=== PATIENT | male | born 1985 | race Caucasian/White ===

== ENCOUNTER 2017-01-26 16:19 | Emergency (ER) | payer SELFPAY ==
[~2017-01-26] VITALS: Ht 177.8 cm; Wt 116.0 kg
[~2017-01-26 16:19] MED LIST: NAPR220T95 PO
[2017-01-26 16:52] VITALS: BP 155/103; PULSE 88; RESP 18; TEMP 99; O2SAT 95
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
[2017-01-26] MEDS ORDERED: EXTR500C PO (18:31)
[2017-01-26] MEDS ORDERED: PRED20 PO (18:31)
[2017-01-26] MEDS ORDERED: TRAM50TA PO (18:47)
== END 2017-01-26 19:00 | disposition home or self-care (01) ==
LOC: PHEFT 16:19
DX: S83.92XA Sprain of unspecified site of left knee, initial encounter (principal); M25.462 Effusion, left knee; F17.210 Nicotine dependence, cigarettes, uncomplicated; W17.89XA Other fall from one level to another, initial encounter; Y93.9 Activity, unspecified; Y92.9 Unspecified place or not applicable
CPT/HCPCS: 73564; 99283; L1830

== ENCOUNTER 2017-05-03 11:02 | Emergency (ER) | payer SELFPAY ==
[~2017-05-03] VITALS: Ht 177.8 cm; Wt 117.6 kg
[~2017-05-03 11:02] MED LIST changes: +EXTR500C PO; +PRED20 PO; +TRAM50TA PO
[2017-05-03 11:10] VITALS: PULSE 98; RESP 16; TEMP 98; O2SAT 100
--- NOTE | 2017-05-03 11:34 | PD ---
HPI Chief Complaint: Back/ Neck Pain or Injury Time Seen by Provider: 11:24 Travel History International Travel<30 days: No Contact w/Intl Traveler<30days: No Traveled to known affect area: No History of Present Illness HPI 31-year-old male presents the emergency department with 3 day history of increasing and spreading erythematous vesicular rash. Patient states it started on his left flank and now has disseminated across his trunk both front and back, as well as both forearms and lower extremities. Patient denies fever or chills but has had back pain and muscle aches. He denies upper respiratory symptoms, cough, shortness of breath, or abdominal discomfort or pain. He denies any specific exposure history. Last time he did yard work was a week and a half ago. Patient states he had a history of chickenpox as a child. He has no rash on his neck or head. He has no urinary symptoms. He is allergic to ibuprofen. Patient states he did take some Benadryl without much improvement. PFSH Past Medical History Hx Anticoagulant Therapy: No Diabetes: No Diminished Hearing: No Musculoskeletal: Yes (CHRONIC L LEG PAIN SP OLD INJURY) Integumentary: Yes (HX SKIN INFECTION) Immunizations Current: Yes Past Surgical History Tympanostomy Tube: Yes Other Surgery: Yes (pe tubes) Social History Alcohol Use: Yes (RARE) Tobacco Use: Yes (10/07 PPD) Substance Use: Yes (rare pot) Allergies-Medications (Allergen,Severity, Reaction): Coded Allergies: Benadryl (Verified Allergy, Severe, MOODINESS, 05/03/17) Ibuprofen (Verified Adverse Reaction, Mild, ABD PAIN, 05/03/17) Reported Meds & Prescriptions Reported Meds & Active Scripts Active Acyclovir 200 Mg Cap 800 Mg PO 5 TIMES A DAY 7 Days Review of Systems Except as stated in HPI: all other systems reviewed are Neg General / Constitutional: No: Fever, Chills Eyes: No: Visual changes HENT: No: Headaches Cardiovascular: No: Chest Pain or Discomfort Respiratory: No: Shortness of Breath Gastrointestinal: No: Abdominal Pain Genitourinary: No: Dysuria Musculoskeletal: Positive: Myalgias, No: Pain Skin: Positive Rash, Positive Itching, No Hives Neurologic: No: Weakness Psychiatric: No: Depression Endocrine: No: Polydipsia Hematologic/Lymphatic: No: Easy Bruising Physical Exam Narrative GENERAL: Patient appears in no acute distress. SKIN: Warm and dry. Patient has diffuse raised vesicular rash with various stages of healing with some areas of excoriation. It appears consistent with herpes zoster. There is no sign of cellulitis, abscess, or lesions suggestive of scabies. HEAD: Atraumatic. Normocephalic. EYES: Pupils equal and round. No scleral icterus. No injection or drainage. ENT: No nasal bleeding or discharge. Mucous membranes pink and moist. Pharynx is clear. Airway is patent. NECK: Trachea midline. Supple and nontender without significant lymphadenopathy. Negative Lhermitte sign. CARDIOVASCULAR: Regular rate and rhythm. RESPIRATORY: No accessory muscle use. Clear to auscultation. Breath sounds equal bilaterally. GASTROINTESTINAL: Abdomen soft, non-tender, nondistended. Hepatic and splenic margins not palpable. MUSCULOSKELETAL: Extremities without clubbing, cyanosis, or edema. No obvious deformities. NEUROLOGICAL: Awake and alert. No obvious cranial nerve deficits. Motor grossly within normal limits. Five out of 5 muscle strength in the arms and legs. Normal speech. PSYCHIATRIC: Appropriate mood and affect; insight and judgment normal. Data Data Last Documented VS Vital Signs Date Time Temp Pulse Resp B/P Pulse Ox O2 Delivery O2 Flow Rate FiO2 05/03/17 11:10 98.0 98 16 100 MDM Medical Decision Making Medical Screen Exam Complete: Yes Emergency Medical Condition: Yes Differential Diagnosis Allergic dermatitis. Viral syndrome. Shingles. Chickenpox. Narrative Course Patient is medically stable at time of exam. Patient is discussed and examined with Dr. Anglin. It Is felt the patient probably has active chickenpox, despite history of possible chickenpox as a child. Patient will be treated with acyclovir 200 mg capsules, he is to take for capsules 5 times a day for the next week. Patient is to take Tylenol and/or ibuprofen as needed. Patient use topical Caladryl to the lesions until healed. Patient follow with primary care physician or return to emergency department if symptoms worsen. Diagnosis Primary Impression: Chickenpox Referrals: [facility] Patient Instructions: Chickenpox (ED), Chickenpox Vaccine (ED), General Instructions Additional Instructions: It Is felt the patient probably has active chickenpox, despite history of possible chickenpox as a child. Patient will be treated with acyclovir 200 mg capsules, he is to take for capsules 5 times a day for the next week. Patient is to take Tylenol and/or ibuprofen as needed. Patient use topical Caladryl to the lesions until healed. Patient follow with primary care physician or return to emergency department if symptoms worsen. Med/Other Pt SpecificInfo: Prescription(s) given Scripts Acyclovir 200 Mg [id number] Mg PO 5 TIMES A DAY 7 Days Ref 0 Prov:Brent Anglin MD 05/03/17 Disposition: 01 DISCHARGE HOME Condition: Stable Luis M Vizcarra May 03, 2017 11:34
[2017-05-03] MEDS ORDERED: ACYC200C66 PO (11:35)
== END 2017-05-03 11:48 | disposition home or self-care (01) ==
LOC: PHED 11:02 → PHEFT 11:48
DX: B01.9 Varicella without complication (principal); F17.200 Nicotine dependence, unspecified, uncomplicated; Z87.39 Personal history of other diseases of the musculoskeletal system and connective tissue; Z87.2 Personal history of diseases of the skin and subcutaneous tissue
CPT/HCPCS: 99283

== ENCOUNTER 2017-05-11 14:06 | Emergency (ER) | payer SELFPAY ==
[~2017-05-11] VITALS: Ht 177.8 cm; Wt 115.8 kg
[~2017-05-11 14:06] MED LIST changes: +ACYC200C66 PO; -EXTR500C PO; -NAPR220T95 PO; -PRED20 PO; -TRAM50TA PO
[2017-05-11 14:10] VITALS: BP 142/93; PULSE 89; RESP 16; TEMP 99.1; O2SAT 97
[2017-05-11] MEDS ORDERED: methylPREDNISolone SOD SUCC 125 MG/2 ML VIAL IV PUSH ONE (16:15)
[2017-05-11] MEDS ORDERED: traMADol HCL 50 MG TAB PO ONE (16:15)
[2017-05-11 16:37] LABS: CHLORIDE 106 MEQ/L (98-107); POTASSIUM 4.3 MEQ/L (3.5-5.1); SODIUM (NA) 137 MEQ/L (136-145)
[2017-05-11 16:41] LABS: ANION GAP 6 MEQ/L (5-15); BICARBONATE 24.8 MEQ/L (21.0-32.0); BLOOD UREA NITROGEN 16 MG/DL (7-18)
[2017-05-11 16:44] LABS: ALT (GPT) 63 U/L (12-78); AST (GOT) 39 U/L (15-37); GLOMERULAR FILTRATION RATE 108 ML/MIN (>89)
[2017-05-11 16:45] LABS: TOTAL BILIRUBIN ADULT 0.3 MG/DL (0.2-1.0)
[2017-05-11 16:47] LABS: ALKALINE PHOSPHATASE 78 U/L (45-117); AUTOMATED NEUTROPHIL # 4.7 TH/MM3 (1.8-7.7); BASOPHIL % 0.4 % (0.0-2.0); EOSINOPHIL # 0.1 TH/MM3 (0-0.4); EOSINOPHIL % 1.4 % (0.0-4.0); HEMATOCRIT 48.3 % (39.0-51.0); HEMO FLAGS DIFF FINAL; LYMPHOCYTE # 2.2 TH/MM3 (1.0-4.8); MEAN CELL VOLUME 88.2 FL (80.0-100.0); MEAN CORPUSCULAR HEMOGLOBIN 30.8 PG (27.0-34.0); MEAN CORPUSCULAR HGB CONC 34.9 % (32.0-36.0); MONO % 6.1 % (0.0-8.0); NEUT % 62.1 % (16.0-70.0); PLATELET COUNT 270 TH/MM3 (150-450); RED BLOOD COUNT 5.48 MIL/MM3 (4.50-5.90); RED CELL DISTRIBUTION WIDTH 12.4 % (11.6-17.2); WHITE BLOOD COUNT 7.5 TH/MM3 (4.0-11.0)
[2017-05-11] MEDS ORDERED: MEDR4PAK PO (16:59)
[2017-05-11] MEDS ORDERED: TRAM50TA PO (16:59)
--- NOTE | 2017-05-11 17:01 | PD ---
HPI Chief Complaint: Skin Problem Time Seen by Provider: 16:04 Travel History International Travel<30 days: No Contact w/Intl Traveler<30days: No Traveled to known affect area: No History of Present Illness HPI Patient is a 31-year-old male who comes in complaining of a rash to his extremities. He was here about a week ago and diagnosed with chickenpox. He says the rash has not been improving, and is now very painful. He says for the past day and a half, he has been unable to sleep due to the pain. He says it is a burning type of pain, and he feels like his arms are swollen. The rash is mostly in his arms, with a few spots on his back and one spot on his chest and a few spots on his legs. He has not had any fever or chills. He denies any insect bites. He denies any recent travel. He says he has never had a rash like this before. He did have chickenpox as a child. PFSH Past Medical History Hx Anticoagulant Therapy: No Diabetes: No Diminished Hearing: No Musculoskeletal: Yes (CHRONIC L LEG PAIN SP OLD INJURY) Integumentary: Yes (HX SKIN INFECTION) Immunizations Current: Yes Past Surgical History Tympanostomy Tube: Yes Other Surgery: Yes (pe tubes) Social History Alcohol Use: Yes (RARE) Tobacco Use: No Substance Use: Yes (rare pot) Allergies-Medications (Allergen,Severity, Reaction): Coded Allergies: Benadryl (Verified Allergy, Severe, MOODINESS, 05/11/17) pt states does not have a allergy to this medicjesica nichols Ibuprofen (Verified Adverse Reaction, Mild, ABD PAIN, 05/11/17) pt states does not have a allergy to this medication. vargas Cannon Reported Meds & Prescriptions Reported Meds & Active Scripts Active Acyclovir 200 Mg Cap 800 Mg PO 5 TIMES A DAY 7 Days Review of Systems Except as stated in HPI: all other systems reviewed are Neg General / Constitutional: No: Fever, Chills HENT: No: Headaches, Lightheadedness Cardiovascular: No: Chest Pain or Discomfort Respiratory: No: Cough, Shortness of Breath Gastrointestinal: No: Nausea, Vomiting Musculoskeletal: Positive: Pain, No: Edema Skin: Positive Rash, No Change in Pigmentation Neurologic: No: Weakness, Dizziness Physical Exam Narrative GENERAL: Awake and alert, in no acute distress. SKIN: Focused skin assessment warm/dry. Maculopapular rash, raised on both of his arms. There are couple of scabbed areas, but no vesicle seen. There is one spot on his chest and a few spots on his back. There are also a few maculopapules on each leg. HEAD: Atraumatic. Normocephalic. EYES: Pupils equal and round. No scleral icterus. No injection or drainage. ENT: Mucous membranes pink and moist. NECK: Trachea midline. No JVD. CARDIOVASCULAR: Regular rate and rhythm. No murmur appreciated. RESPIRATORY: No accessory muscle use. Clear to auscultation. Breath sounds equal bilaterally. MUSCULOSKELETAL: No obvious deformities. No clubbing. No cyanosis. No edema. NEUROLOGICAL: Awake and alert. No obvious cranial nerve deficits. Motor grossly within normal limits. Normal speech. PSYCHIATRIC: Appropriate mood and affect; insight and judgment normal. Data Data Last Documented VS Vital Signs Date Time Temp Pulse Resp B/P Pulse Ox O2 Delivery O2 Flow Rate FiO2 05/11/17 14:10 99.1 89 16 142/93 97 Orders Iv Access Insert/Monitor (05/11/17 16:13) Complete Blood Count With Diff (05/11/17 16:13) Comprehensive Metabolic Panel (05/11/17 16:13) Methylprednisolone So Succ Inj (Solumedr (05/11/17 16:15) Tramadol (Ultram) (05/11/17 16:15) Labs Laboratory Tests Test 05/11/17 16:26 White Blood Count 7.5 TH/MM3 Red Blood Count 5.48 MIL/MM3 Hemoglobin 16.9 GM/DL Hematocrit 48.3 % Mean Corpuscular Volume 88.2 FL Mean Corpuscular Hemoglobin 30.8 PG Mean Corpuscular Hemoglobin 34.9 % Concent Red Cell Distribution Width 12.4 % Platelet Count 270 TH/MM3 Mean Platelet Volume 8.0 FL Neutrophils (%) (Auto) 62.1 % Lymphocytes (%) (Auto) 30.0 % Monocytes (%) (Auto) 6.1 % Eosinophils (%) (Auto) 1.4 % Basophils (%) (Auto) 0.4 % Neutrophils # (Auto) 4.7 TH/MM3 Lymphocytes # (Auto) 2.2 TH/MM3 Monocytes # (Auto) 0.5 TH/MM3 Eosinophils # (Auto) 0.1 TH/MM3 Basophils # (Auto) 0.0 TH/MM3 CBC Comment DIFF FINAL Differential Comment Sodium Level 137 MEQ/L Potassium Level 4.3 MEQ/L Chloride Level 106 MEQ/L Carbon Dioxide Level 24.8 MEQ/L Anion Gap 6 MEQ/L Blood Urea Nitrogen 16 MG/DL Creatinine 0.82 MG/DL Estimat Glomerular Filtration 108 ML/MIN Rate Random Glucose 101 MG/DL Calcium Level 8.5 MG/DL Total Bilirubin 0.3 MG/DL Aspartate Amino Transf 39 U/L (AST/SGOT) Alanine Aminotransferase 63 U/L (ALT/SGPT) Alkaline Phosphatase 78 U/L Total Protein 7.6 GM/DL Albumin 4.2 GM/DL [facility] Medical Decision Making Medical Screen Exam Complete: Yes Emergency Medical Condition: Yes Medical Record Reviewed: Yes Differential Diagnosis Dermatitis versus allergic reaction versus Varicella Narrative Course Patient is a 31-year-old male comes in complaining of a painful rash to his arms. He was diagnosed with chickenpox a week ago, says he has not been getting better. I'm not convinced this is chickenpox at this time. He has not really had itching, and more describes pain that started recently. The rash itself is not vesicular. He also has not had any systemic symptoms. Labs sent show no acute abnormalities. We will try a course of steroids to see if this helps. Patient will need to follow-up with dermatology. Given pain medicine. Advised to return to the ED as needed for any worsening symptoms. Diagnosis Primary Impression: Rash Patient Instructions: Acute Rash (ED), General Instructions Additional Instructions: Follow-up with dermatology: Dr. Rubio Ronquillo,[address] [place] [address] ,[phone]. Take the full course of steroids, starting tomorrow she had a dose today. Take pain medicine as needed. Return to the ED as needed for any worsening symptoms. Scripts Tramadol 50 Mg Tab50 Mg PO Q6H PRN (PAIN) #14 TAB Ref 0 Prov:Arti Quigley MD 05/11/17 Methylprednisolone Dosepak (Medrol Dosepak)4 Mg Dspk4 Mg PO DIRECTED #1 DSPK Ref 0 Per Pharmacist direction Prov:Arti Quigley MD 05/11/17 Disposition: 01 DISCHARGE HOME Condition: Stable Arti Quigley MD May 11, 2017 17:01
[2017-05-11 17:32] VITALS: BP 135/88
== END 2017-05-11 17:35 | disposition home or self-care (01) ==
LOC: PHED 14:06
DX: R21 Rash and other nonspecific skin eruption (principal)
CPT/HCPCS: 80053; 85025; 96374; 99284; J2930

== ENCOUNTER 2017-06-09 21:46 | Emergency (ER) | payer SELFPAY ==
[~2017-06-09] VITALS: Ht 177.8 cm; Wt 114.0 kg
[~2017-06-09 21:46] MED LIST changes: +MEDR4PAK PO; +TRAM50TA PO
[2017-06-09 22:12] VITALS: BP 148/93; PULSE 94; RESP 18; TEMP 98.9; O2SAT 97
[2017-06-09 22:30] VITALS: BP 148/93; PULSE 94; RESP 18; TEMP 98.9; O2SAT 97
[2017-06-09] MEDS ORDERED: CLINDAMYCIN PHOS 600 MG/4 ML VIAL IM ONE (22:30)
[2017-06-09] MEDS ORDERED: ACETAMINOPHEN/HYDROcodone 325 MG/5 MG TAB PO ONE (22:30)
[2017-06-09] MEDS ORDERED: NORC5TAB PO (22:38)
[2017-06-09] MEDS ORDERED: BACT800T5 PO (22:38)
[2017-06-09] MEDS ORDERED: CLIN1CAP5 PO (22:38)
--- NOTE | 2017-06-09 22:38 | PD ---
HPI Chief Complaint: facial pain Time Seen by Provider: 22:26 Travel History International Travel<30 days: No Contact w/Intl Traveler<30days: No Traveled to known affect area: No History of Present Illness HPI 31-year-old male complaining of redness swelling and pain to the nose. Patient states that the symptoms started about 4 days ago. Patient denies any injury to the nose. Patient denies any fever chills. Patient states the pain is burning pain sharp pain started the nose with radiation to the face. Patient denies any neck pain. Patient denies any chest pain shortness of breath. Patient denies abdominal pain. Patient denies any nausea vomiting diarrhea. PFSH Past Medical History Hx Anticoagulant Therapy: No Diabetes: No Diminished Hearing: No Musculoskeletal: Yes (CHRONIC L LEG PAIN SP OLD INJURY) Integumentary: Yes (HX SKIN INFECTION) Immunizations Current: Yes Past Surgical History Tympanostomy Tube: Yes Other Surgery: Yes (pe tubes) Social History Alcohol Use: Yes (RARE) Tobacco Use: No Substance Use: Yes (rare pot) Allergies-Medications (Allergen,Severity, Reaction): Coded Allergies: diphenhydramine (Unverified Allergy, Severe, MOODINESS, 05/18/17) pt states does not have a allergy to this medicaiton Brett nichols ibuprofen (Unverified Adverse Reaction, Mild, ABD PAIN, 05/18/17) pt states does not have a allergy to this medication. vargas Cannon Reported Meds & Prescriptions Reported Meds & Active Scripts Active Tramadol (Tramadol HCl) 50 Mg Tab 50 Mg PO Q6H PRN Medrol Dosepak (Methylprednisolone) 4 Mg Dspk 4 Mg PO DIRECTED Per Pharmacist direction Acyclovir 200 Mg Cap 800 Mg PO 5 TIMES A DAY 7 Days Review of Systems General / Constitutional: No: Fever Eyes: No: Visual changes HENT: No: Headaches Cardiovascular: No: Chest Pain or Discomfort Respiratory: No: Shortness of Breath Gastrointestinal: No: Abdominal Pain Genitourinary: No: Dysuria Musculoskeletal: No: Pain Skin: No Rash Neurologic: No: Weakness Psychiatric: No: Depression Endocrine: No: Polydipsia Hematologic/Lymphatic: No: Easy Bruising Physical Exam Narrative GENERAL: Well-nourished, well-developed patient. SKIN: Focused skin assessment warm/dry. HEAD: Normocephalic. EYES: No scleral icterus. No injection or drainage. NECK: Supple, trachea midline. No JVD or lymphadenopathy. CARDIOVASCULAR: Regular rate and rhythm without murmurs, gallops, or rubs. RESPIRATORY: Breath sounds equal bilaterally. No accessory muscle use. GASTROINTESTINAL: Abdomen soft, non-tender, nondistended. MUSCULOSKELETAL: No cyanosis, or edema. BACK: Nontender without obvious deformity. No CVA tenderness. Patient has an area redness swelling tenderness on the nose. No induration. No discharge. Data Data Last Documented VS Vital Signs Date Time Temp Pulse Resp B/P (MAP) Pulse Ox O2 Delivery O2 Flow Rate FiO2 06/09/17 22:12 98.9 94 18 148/93 (111) 97 Orders Orders Clindamycin Inj (Cleocin Inj) (06/09/17 22:30) Acetamin-Hydrocod 325-5 Mg ([place] 5-325 (06/09/17 22:30) MDM Medical Decision Making Medical Screen Exam Complete: Yes Emergency Medical Condition: Yes Differential Diagnosis Differential diagnosis including cellulitis, abscess. Narrative Course 31-year-old male with redness swelling tenderness of the nose. Clindamycin 600 mg IM. Diagnosis Primary Impression: Cellulitis of nose Additional Instructions: Bactrim DS and clindamycin as directed. Follow-up with personal physician. Return if persistent problem or worse. Med/Other Pt SpecificInfo: Prescription(s) given Scripts Hydrocodone-Acetaminophen ([place]) 5-325 mg Tab 1 TAB PO Q6H Y for PAIN, #12 TAB 0 Refills Prov: Blu Moss MD 06/09/17 Clindamycin (Clindamycin) 150 Mg Cap 2 TAB PO Q6H for Infection, #80 CAP 0 Refills Prov: Blu Moss MD 06/09/17 Sulfamethoxazole-Trimethoprim (Bactrim DS) 800-160 Mg Tab 1 TAB PO BID for Infection, #20 TAB 0 Refills Prov: Blu Moss MD 06/09/17 Disposition: 01 DISCHARGE HOME Condition: Stable Blu Moss MD Jun 09, 2017 22:38
[2017-06-09 22:48] VITALS: BP 149/91
== END 2017-06-09 23:09 | disposition home or self-care (01) ==
LOC: PHED 21:46
DX: J34.0 Abscess, furuncle and carbuncle of nose (principal)
CPT/HCPCS: 96372

== ENCOUNTER 2017-06-20 10:44 | Emergency (ER) | payer SELFPAY ==
[~2017-06-20] VITALS: Ht 177.8 cm; Wt 111.4 kg
[~2017-06-20 10:44] MED LIST changes: +BACT800T5 PO; +CLIN1CAP5 PO; +NORC5TAB PO
[2017-06-20 10:55] VITALS: BP 152/80; PULSE 112; RESP 16; TEMP 99.1; O2SAT 98
[2017-06-20] MEDS ORDERED: SODIUM CHLOR 0.9% 1000 ML INJ 1,000 ML IV SCH (11:05)
--- NOTE | 2017-06-20 11:13 | PD ---
HPI Chief Complaint: Abdominal Pain Time Seen by Provider: 11:01 Travel History International Travel<30 days: No Contact w/Intl Traveler<30days: No Traveled to known affect area: No History of Present Illness HPI 31-year-old male presents with right lower quadrant abdominal pain that started at 9 PM last night. He denies any other associated symptoms. He denies recurrent history of this. He denies migration the pain. Quality pain is sharp. Severity severe per patient. He states that specific modifying factors. PFSH Past Medical History Hx Anticoagulant Therapy: No Diabetes: No Diminished Hearing: No Musculoskeletal: Yes (CHRONIC L LEG PAIN SP OLD INJURY) Integumentary: Yes (HX SKIN INFECTION) Immunizations Current: Yes Past Surgical History Tympanostomy Tube: Yes Other Surgery: Yes (pe tubes) Social History Alcohol Use: Yes (RARE) Tobacco Use: No Substance Use: Yes (rare pot) Allergies-Medications (Allergen,Severity, Reaction): Coded Allergies: diphenhydramine (Verified Allergy, Severe, MOODINESS, 06/20/17) pt states does not have a allergy to this medicjesica nichols Reported Meds & Prescriptions Reported Meds & Active Scripts Active [place] (Hydrocodone-Acetaminophen) 5-325 mg Tab 1 Tab PO Q6H PRN Review of Systems Except as stated in HPI: all other systems reviewed are Neg Physical Exam Narrative GENERAL: Well-nourished, well-developed patient. SKIN: Warm and dry. HEAD: Normocephalic and atraumatic. EYES: No injection or drainage. ENT: No nasal drainage noted. NECK: Supple, trachea midline. CARDIOVASCULAR: Regular rate and rhythm RESPIRATORY: Breath sounds equal bilaterally. No accessory muscle use. GASTROINTESTINAL: Abdomen soft, ttp in rlq, nondistended. EXTREMITIES: No edema. NEUROLOGICAL: Awake and alert. Motor and sensory grossly within normal limits. Normal speech. Data Data Last Documented VS Vital Signs Date Time Temp Pulse Resp B/P (MAP) Pulse Ox O2 Delivery O2 Flow Rate FiO2 06/20/17 12:48 82 122/78 (93) 97 06/20/17 10:55 99.1 16 Orders Orders Complete Blood Count With Diff (06/20/17 11:05) Comprehensive Metabolic Panel (06/20/17 11:05) Lipase (06/20/17 11:05) Urinalysis - C+S If Indicated (06/20/17 11:05) Iv Access Insert/Monitor (06/20/17 11:05) Ecg Monitoring (06/20/17 11:05) Oximetry (06/20/17 11:05) NPO (06/20/17 11:05) Morphine Inj (Morphine Inj) (06/20/17 11:15) Ondansetron Inj (Zofran Inj) (06/20/17 11:15) Sodium Chlor 0.9% 1000 Ml Inj (Ns 1000 M (06/20/17 11:05) Sodium Chloride 0.9% Flush (Ns Flush) (06/20/17 11:15) Oral Contrast - Adult (06/20/17 11:08) Ct Abd/Pel W Iv Contrast(Rout) (06/20/17 11:31) Iohexol 350 Inj (Omnipaque 350 Inj) (06/20/17 12:16) Labs Laboratory Tests Test 06/20/17 11:15 06/20/17 11:24 White Blood Count 9.7 TH/MM3 Red Blood Count 5.58 MIL/MM3 Hemoglobin 17.3 GM/DL Hematocrit 49.5 % Mean Corpuscular Volume 88.6 FL Mean Corpuscular Hemoglobin 31.1 PG Mean Corpuscular Hemoglobin Concent 35.0 % Red Cell Distribution Width 12.8 % Platelet Count 219 TH/MM3 Mean Platelet Volume 8.2 FL Neutrophils (%) (Auto) 74.6 % Lymphocytes (%) (Auto) 16.8 % Monocytes (%) (Auto) 7.7 % Eosinophils (%) (Auto) 0.2 % Basophils (%) (Auto) 0.7 % Neutrophils # (Auto) 7.3 TH/MM3 Lymphocytes # (Auto) 1.6 TH/MM3 Monocytes # (Auto) 0.7 TH/MM3 Eosinophils # (Auto) 0.0 TH/MM3 Basophils # (Auto) 0.1 TH/MM3 CBC Comment DIFF FINAL Differential Comment Blood Urea Nitrogen 11 MG/DL Creatinine 0.89 MG/DL Random Glucose 105 MG/DL Total Protein 7.9 GM/DL Albumin 4.2 GM/DL Calcium Level 9.5 MG/DL Alkaline Phosphatase 88 U/L Aspartate Amino Transf (AST/SGOT) 33 U/L Alanine Aminotransferase (ALT/SGPT) 82 U/L Total Bilirubin 0.4 MG/DL Sodium Level 139 MEQ/L Potassium Level 4.2 MEQ/L Chloride Level 106 MEQ/L Carbon Dioxide Level 24.2 MEQ/L Anion Gap 9 MEQ/L Estimat Glomerular Filtration Rate 98 ML/MIN Lipase 104 U/L Urine Collection Type CLEAN CATCH Urine Color YELLOW Urine Turbidity CLEAR Urine pH 6.0 Urine Specific [place] 1.008 Urine Protein 30 mg/dL Urine Glucose (UA) NEG mg/dL Urine Ketones NEG mg/dL Urine Occult Blood LARGE Urine Nitrite NEG Urine Bilirubin NEG Urine Leukocyte Esterase NEG Urine RBC 0-3 /hpf Urine WBC 0-2 /hpf Microscopic Urinalysis Comment CULT NOT INDICATED MDM Medical Decision Making Medical Screen Exam Complete: Yes Emergency Medical Condition: Yes Medical Record Reviewed: Yes (pmh confirmed) Interpretation(s) CBC & BMP Diagram 06/20/17 11:15 Total Protein 7.9, Albumin 4.2, Calcium Level 9.5, Alkaline Phosphatase 88, Aspartate Amino Transf (AST/SGOT) 33, Alanine Aminotransferase (ALT/SGPT) 82 H, Total Bilirubin 0.4 Last 24 hours Impressions Abdomen/Pelvis CT 06/20/17 1131 Signed Impressions: Service Date/Time: Tuesday, June 20, 2017 12:13 - CONCLUSION: 1. No acute abnormality seen. The appendix is normal. 2. Hepatic steatosis. Emerson Lemus MD Differential Diagnosis Appendicitis, stone, musculoskeletal Narrative Course Will check lab, urinalysis, CT scan and dose with pain medication, fluids and reevaluate ed workup no acute, Patient denies any new complaints and states that they are feeling better. Patient happy with care, all questions answered. Patient knows that follow up is incumbent on them and to return to the emergency room immediately if new or worsening symptoms develop. Patient given strict return precautions, vitals reviewed and are normal, agrees to further workup as an outpatient. Diagnosis Primary Impression: Abdominal pain Qualified Codes: R10.31 - Right lower quadrant pain Patient Instructions: General Instructions Additional Instructions: tylenol as needed, follow with primary this week, return as needed Med/Other Pt SpecificInfo: No Change to Meds Disposition: 01 DISCHARGE HOME Condition: Stable Rianna Elizalde MD Jun 20, 2017 11:13
[2017-06-20] MEDS ORDERED: SODIUM CHLORIDE 0.9% FLUSH 10 ML FLUSH IV FLUSH PRN (11:15)
[2017-06-20] MEDS ORDERED: MORPHINE SULFATE 4 MG/ML INJ IV PUSH ONE (11:15)
[2017-06-20] MEDS ORDERED: ONDANSETRON HCL 4 MG/2 ML VIAL IVP ONE (11:15)
[2017-06-20 11:33] LABS: BLOOD, URINE LARGE (NEG); GLUCOSE,URINE NEG (NEG); KETONE, URINE NEG (NEG); NITRITE,URINE NEG (NEG)
[2017-06-20 11:36] LABS: AUTOMATED NEUTROPHIL # 7.3 TH/MM3 (1.8-7.7); BASOPHIL # 0.1 TH/MM3 (0-0.2); BASOPHIL % 0.7 % (0.0-2.0); EOSINOPHIL % 0.2 % (0.0-4.0); HEMATOCRIT 49.5 % (39.0-51.0); HEMO FLAGS DIFF FINAL; LYMPH % 16.8 % (9.0-44.0); LYMPHOCYTE # 1.6 TH/MM3 (1.0-4.8); MEAN CELL VOLUME 88.6 FL (80.0-100.0); MEAN CORPUSCULAR HEMOGLOBIN 31.1 PG (27.0-34.0); MONO % 7.7 % (0.0-8.0); NEUT % 74.6 % (16.0-70.0); PLATELET COUNT 219 TH/MM3 (150-450); RED BLOOD COUNT 5.58 MIL/MM3 (4.50-5.90); RED CELL DISTRIBUTION WIDTH 12.8 % (11.6-17.2); WHITE BLOOD COUNT 9.7 TH/MM3 (4.0-11.0)
[2017-06-20 11:39] LABS: CHLORIDE 106 MEQ/L (98-107); POTASSIUM 4.2 MEQ/L (3.5-5.1); SODIUM (NA) 139 MEQ/L (136-145)
[2017-06-20 11:40] LABS: COMMENT (UR) CULT NOT INDICATED; CULTURE IF INDICATED CULT NOT INDICATED; METHOD OF COLLECTION CLEAN CATCH; RBC, URINE 0-3 /hpf (0-3); URINE COLOR YELLOW (YELLW/STRAW); WBC, URINE 0-2 /hpf (0-5)
[2017-06-20 11:42] VITALS: O2SAT 96
[2017-06-20 11:43] LABS: ANION GAP 9 MEQ/L (5-15); BICARBONATE 24.2 MEQ/L (21.0-32.0); BLOOD UREA NITROGEN 11 MG/DL (7-18)
[2017-06-20 11:46] LABS: ALT (GPT) 82 U/L (12-78); AST (GOT) 33 U/L (15-37); GLOMERULAR FILTRATION RATE 98 ML/MIN (>89)
[2017-06-20 11:47] LABS: TOTAL BILIRUBIN ADULT 0.4 MG/DL (0.2-1.0)
[2017-06-20 11:49] LABS: ALKALINE PHOSPHATASE 88 U/L (45-117)
[2017-06-20] MEDS ORDERED: IOHEXOL 350 MG/ML 10 ML VIAL (for RAD DIAG) IVCONTRAST ONE (12:16)
[2017-06-20 12:48] VITALS: BP 122/78; PULSE 82; O2SAT 97
--- NOTE | 2017-06-20 13:05 | RADRPT ---
EXAM DATE/TIME: 06/20/2017 12:13 [facility] COMPARISON: CT ABDOMEN & PELVIS W CONTRAST, March 14, 2016, 12:25. INDICATIONS : Right lower quadrant pain with nausea. Evaluate for appendicitis. IV CONTRAST: 95 cc Omnipaque 350 (iohexol) IV ORAL CONTRAST: No oral contrast ingested. RADIATION DOSE: 20.81 CTDIvol (mGy) MEDICAL HISTORY : None SURGICAL HISTORY : None. ENCOUNTER: Initial ACUITY: 1 day PAIN SCALE: 9/10 LOCATION: Right lower quadrant TECHNIQUE: Volumetric scanning of the abdomen and pelvis was performed. Using automated exposure control and ad justment of the mA and/or kV according to patient size, radiation dose was kept as low as reasonably achievable to obtain optimal diagnostic quality images. DICOM format image data is available electro nically for review and comparison. FINDINGS: LOWER LUNGS: The visualized lower lungs are clear. LIVER: There is decreased density throughout the liver without lesion. There is no dilation of the biliary tree. No calcified gallstones. SPLEEN: Normal size without lesion. PANCREAS: Within normal limits. KIDNEYS: Normal in size and shape. There is no mass, stone or hydronephrosis. ADRENAL GLANDS: Within normal limits. VASCULAR: There is no aortic aneurysm. BOWEL/MESENTERY: The stomach, small bowel, and colon demonstrate no acute abnormality. There is no free intraperitone al air or fluid. The appendix is normal. ABDOMINAL WALL: Within normal limits. RETROPERITONEUM: There is no lymphadenopathy. BLADDER: No wall thickening or mass. REPRODUCTIVE: Within normal limits. INGUINAL: There is no lymphadenopathy or hernia. MUSCULOSKELETAL: Within normal limits for patient age. CONCLUSION: 1. No acute abnormality seen. The appendix is normal. 2. Hepatic steatosis. Emerson Lemus MD on June 20, 2017 at 12:54 Board Certified Radiologist. This report was verified electronically.
== END 2017-06-20 13:34 | disposition home or self-care (01) ==
LOC: PHED 10:44
DX: R10.31 Right lower quadrant pain (principal)
CPT/HCPCS: 74177; 80053; 81001; 83690; 85025; 96361; 96374; 96375; 99285; J2270; J2405; J7030; Q9967